=== PATIENT | female | born 1975 | race Two or more races ===

== ENCOUNTER 2025-05-05 21:35 | Emergency (ER) | payer MEDICAID, SELFPAY ==
[2025-05-05 21:36] VITALS: BMI 25.0
[2025-05-05 21:46] VITALS: BP 109/71; PULSE 89; RESP 18; TEMP 36.7; O2SAT 97
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
--- NOTE | 2025-05-05 22:24 | XR_ITS ---
Examination: CT brain head without contrast. 2-D sagittal coronal reconstructions Date and time of exam:May 05, 2025 1034 hours Comparison June 11, 2021 INDICATIONS: Headaches altered mental status onset today CTDI: vol (mGy):45.6 DLP: (mGycm):898 Technique: Multiple CT axial sections of the brain have been obtained, 5 mm slice thickness. Contrast has not been administered. 2-D sagittal, coronal reconstructions have been obtained Low dose protocols were performed. One or more of the following dose reduction techniques were used; automated exposure control, adjustment of the mA and/or KV according to patient size, use of iterative reconstruction technique. Findings: No significant ventricular enlargement. Intra-axial or extra-axial hemorrhage density is not seen. No mass effect or midline shift Basal cisterns are not remarkable. Fourth ventricle is midline. Cranial vault intact. Impression: Negative for acute hemorrhage, mass effect or midline shift
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
--- NOTE | 2025-05-05 22:24 | XR_ITS ---
Examination: PA lateral chest 2 views TECHNIQUE: Upright PA and lateral chest 2 views Date and time: May 05, 2025 2350 hours Comparison December 27, 2021 INDICATIONS: Chest pain and coughing today. FINDINGS: Normal heart size The lungs are clear. Thoracolumbar dextroscoliosis 12 degrees IMPRESSION: No active disease
[2025-05-05] MEDS: IBUPROFEN TAB 600 MG TABLET PO (22:40)
[2025-05-05 23:31] LABS: HCG Qualitative,Urine Negative
== END 2025-05-06 01:14 | disposition home or self-care (01) ==
PROVIDERS: Physician Assistant; Emergency Provider Emergency Medicine
DX: S16.1XXA Strain of muscle, fascia and tendon at neck level, initial encounter (principal); M25.512 Pain in left shoulder; V89.2XXA Person injured in unspecified motor-vehicle accident, traffic, initial encounter; R51.9 Headache, unspecified; R41.82 Altered mental status, unspecified; R07.9 Chest pain, unspecified; R05.9 Cough, unspecified
CPT/HCPCS: 70450; 71046; 72125; 81025; 99283; A9270

== ENCOUNTER 2025-05-10 19:29 | Emergency (ER) | payer MEDICAID, SELFPAY ==
[2025-05-10 19:29] VITALS: BMI 25.0
[2025-05-10 19:47] VITALS: BP 128/87; PULSE 87; RESP 16; TEMP 36.9; O2SAT 99
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
[2025-05-10 21:16] LABS: Basophils # (Auto) 0.0 Thou/mm3 (0.0-0.2); Basophils % (Auto) 0 % (0-2.5); Eosinophils # (Auto) 0.1 Thou/mm3 (0.0-0.5); Eosinophils % (Auto) 2 % (0-10); Hematocrit 40.1 % (36.0-46.0); Hemoglobin 13.5 g/dL (12.0-16.0); Immature Granulocytes Auto 0.01 Thou/mm3 (0.00-0.00); Lymphocytes # (Auto) 3.1 Thou/mm3 (1.0-4.8); Lymphocytes % (Auto) 43 % (10-50); Mean Corpuscular HGB Conc 33.7 g/dl (31.0-37.0); Mean Corpuscular Hemoglobin 31.3 pg (25.0-35.0); Mean Corpuscular Volume 93 fL (80-100); Monocytes # (Auto) 0.3 Thou/mm3 (0.0-0.8); Monocytes % (Auto) 5 % (0-12); Neutrophils # (Auto) 3.7 Thou/mm3 (1.8-7.7); Neutrophils % (Auto) 50 % (37-80); Nucleated Red Blood Cell # 0.00 Thou/mm3 (0.00-0.00); Nucleated Red Blood Cell % 0 /100 WBC (0); Platelet Count 236 Thou/mm3 (140-440); RDW Standard Deviation 46.5 fL (36.4-46.3); Red Blood Count 4.32 Miln/mm3 (4.00-5.20); White Blood Count 7.3 Thou/mm3 (3.6-11.0)
[2025-05-10 21:34] LABS: Alanine Aminotransferase 140 U/L (10-49); Albumin, Serum 4.9 gm/dL (3.5-5.0); Albumin/Globulin Ratio 1.8 (1.2-2.2); Alkaline Phosphatase 108 U/L (46-116); Anion Gap 7 (7-16); Aspartate Amino Transferase 57 U/L (0-34); BUN/Creatinine Ratio 26 Ratio (12-20); Bilirubin,Total 0.4 mg/dL (0.3-1.2); Blood Urea Nitrogen 18 mg/dL (9-23); Calcium 10.1 mg/dL (8.3-10.6); Calcium (Corrected) 10.1 mg/dL (8.5-10.1); Carbon Dioxide 27.9 mMol/L (20.0-31.0); Chloride 106 mMol/L (98-107); Creatinine (Component) 0.7 mg/dL (0.6-1.3); Estimated Creatinine Clearance 75.8 mL/min (>60); Globulin 2.7 gm/dL (2.3-3.5); Glucose 192 mg/dL (74-106); Osmolality,Calculated 288 (275-295); Potassium 3.8 mMol/L (3.4-5.1); Sodium 141 mMol/L (136-145); Total Protein 7.6 gm/dL (5.7-8.2); eGFR > 60 See Note
[2025-05-10 22:39] VITALS: BP 124/85; PULSE 83; RESP 17; TEMP 36.9; O2SAT 98
[2025-05-10] MEDS: HYDROcodone/APAP 5/325 TABLET 1 TAB PO (22:44)
== END 2025-05-10 22:50 | disposition home or self-care (01) ==
PROVIDERS: Physician Assistant; Emergency Provider Emergency Medicine; PCP Family Medicine
DX: S16.1XXA Strain of muscle, fascia and tendon at neck level, initial encounter (principal); R51.9 Headache, unspecified; V89.2XXA Person injured in unspecified motor-vehicle accident, traffic, initial encounter
CPT/HCPCS: 36415; 70450; 70496; 70498; 72125; 80053; 85025; 99283; A4649; Q9967; A9270

== ENCOUNTER 2025-07-23 06:12 | Emergency (ER) | payer MEDICAID, SELFPAY ==
[2025-07-23 06:12] VITALS: BMI 25.0
[2025-07-23 06:20] VITALS: BP 122/82; PULSE 78; RESP 18; TEMP 36.4; O2SAT 97
--- NOTE | 2025-07-23 06:29 | EKG_ITS ---
[facility] Test Date: 2025-07-23 Pat Name: DELVIS GOODEN Department: Room: - Gender: Female Drug Safety Assistant: : 1975 Requested By: William Frye Order Number: [id number] Reading MD: William Frye Measurements Intervals [place] Rate: 78 P: 24 IA: 145 QRS: -9 QRSD: 74 T: 36 QT: 413 QTc: 473 Interpretive Statements SINUS RHYTHM POSSIBLE LEFT ATRIAL ENLARGEMENT [-0.1mV P-WAVE IN V1/V2] Compared to ECG 01/17/2021 10:52:38 No significant changes /store/S0/[id number]
--- NOTE | 2025-07-23 06:30 | EDNOTE_ITS ---
<Statement entered by Destiny Zamora MD - 07/24/25 16:16> As co-signing physician, I was present and available for consult prn. I concur with the plan and care as documented by the midlevel provider. ED Dizzyness RME/HPI General Chief Complaint: Dizziness Stated Complaint: DIZZINESS/VOMITING Time Seen by Provider: 07/23/25 06:14 Source: patient Arrival date/time: 07/23/25 06:12 49-year-old female with a history of hypertension, type 2 diabetes presents to the emergency room with a chief complaint of dizziness and vomiting since 4 AM this morning Mode of arrival: ambulatory Limitations: no limitations Related Data Home Medications ?Medication ?Instructions ?Recorded ?Confirmed lisinopril 10 mg tablet 06/22/20 metformin 500 mg tablet 500 mg PO BID 06/22/2006/22 Previous Rx's ?Medication ?Instructions ?Recorded naproxen 500 mg tablet 500 mg PO BID PRN pain #30 t abs 06/22/20 meclizine 25 mg tablet 25 mg PO TID PRN dizziness # 14 tabs 01/17/21 cephalexin 500 mg capsule 500 mg PO QID #40 caps 12/27 loratadine 10 mg tablet 10 mg PO QDAY #30 tabs 12/27 ibuprofen 800 mg tablet 800 mg PO TID PRN pain #30 t abs 02/21/22 hydrocodone 5 mg-acetaminophen 325 1 tab PO TID PRN pa in #20 tabs 12/15/22 mg tablet ondansetron HCl 4 mg tablet 4 mg PO TID PRN nausea and 12/15/22 vomiting #20 tabs ciprofloxacin HCl 500 mg tablet 500 mg PO BID #10 tabs 03/03/24 (Cipro) lidocaine 5 % topical patch 1 patch topical Q24H Muscl e pain 05/06/25 (Lidoderm) #15 ea meloxicam 15 mg tablet 15 mg PO QDAY #10 tabs 05/06 methocarbamol 500 mg tablet 500 mg PO Q8H PRN Muscle s pasms 05/06/25 #15 tabs meclizine 25 mg tablet 25 mg PO BID PRN dizziness # 14 tabs 07/23/25 ondansetron 4 mg disintegrating 4 mg PO Q8H PRN nausea and 07/23/25 tablet vomiting #14 tabs Allergies Allergy/AdvReac Type Severity Reaction Status Date / Time No Known Allergies Allergy Verified 03/03/24 17:12 Review of Systems Review of Systems Systems Reviewed: All systems reviewed, normal except as documented Constitutional Constitutional: Reports system reviewed and no additional complaints, except as documented, Denies fatigue, Denies fever(s), Denies headache(s) and Reports weakness Eyes Eyes: Reports system reviewed and no additional complaints, except as documented, Denies blurry vision and Denies change in vision ENT Ears, Nose, Mouth, and Throat: Reports system reviewed and no additional complaints, except as documented, Denies otalgia, Denies headache(s), Denies nasal congestion, Denies throat swelling and Reports vertigo Cardiovascular Cardiovascular: Reports system reviewed and no additional complaints, except as documented, Denies chest pain, Denies dyspnea and Denies dyspnea on exertion Respiratory Respiratory: Reports system reviewed and no additional complaints, except as documented, Denies chest congestion, Denies cough, Denies dyspnea, Denies dyspnea on exertion and Denies wheezing Gastrointestinal Gastrointestinal: Reports system reviewed and no additional complaints, except as documented, Denies abdominal pain, Denies cramping, Denies nausea and Denies vomiting Genitourinary Genitourinary: Reports system reviewed and no additional complaints, except as documented Musculoskeletal Musculoskeletal: Reports system reviewed and no additional complaints, except as documented and Denies back pain Integumentary/Breasts Skin/Breast: Reports system reviewed and no additional complaints, except as documented and Denies wounds Neurologic Neurologic: Reports system reviewed and no additional complaints, except as documented, Denies confusion, Denies headache(s), Denies lack of coordination, Reports vertigo and Reports weakness Psychiatric Psychiatric: Reports system reviewed and no additional complaints, except as documented, Denies anxiety, Denies confusion, Denies depression, Denies paranoia, Denies suicidal ideation and Denies tactile hallucinations Endocrine Endocrine: Reports system reviewed and no additional complaints, except as documented and Denies fatigue Hematologic/Lymphatic Hematologic/Lymphatic: Reports system reviewed and no additional complaints, except as documented and Denies lymphadenopathy Allergic/Immunologic Allergic/Immunologic: Reports system reviewed and no additional complaints, except as documented, Denies throat swelling, Denies urticaria and Denies wheezing Past Medical History Past Medical History NEUROLOGIC: Negative Cerebrovascular Accident or Alzheimer's Disease CARDIAC: Positive Hypertension; Negative Cardiac Disorders, Myocardial Infarction, Angina or Congestive Heart Failure RESPIRATORY: Negative Chronic Obstructive Pulmonary Disease (COPD), Asthma, Emphysema or Cystic Fibrosis GASTROINTESTINAL: Negative Liver Cancer or Pancreatic Cancer GENITOURINARY: Negative Genitourinary Disorders or Renal Disease MUSCULOSKELETAL: Negative Bone Cancer or Osteoporosis ENDOCRINE: Positive Diabetes Mellitus Type 2; Negative Endocrine Disorders or Diabetes Mellitus Type 1 HEMATOLOGIC: Negative Sickle Cell Disease PSYCHO/SOCIAL: Positive Depression OTHER HISTORY: Negative Down Syndrome or Developmental Delay Social History SMOKING STATUS: Never smoker ED Exam General Limitations: Present no limitations General appearance: Present alert and in no apparent distress Head Head exam: Present atraumatic; Absent normocephalic or normal inspection Eye Eye exam: Present normal appearance, PERRL and EOMI ENT ENT exam: Present normal exam, normal oropharynx and mucous membranes moist Neck Neck exam: Present normal inspection, full ROM and trachea midline Chest Chest inspection: Present normal inspection and symmetric chest wall rise Respiratory Respiratory exam: Present normal lung sounds bilaterally Cardiovascular Cardiovascular exam: Present regular rate, normal rhythm and normal heart sounds Abdominal Exam Abdominal exam: Present soft and normal bowel sounds Extremities Exam Extremities exam: Present normal inspection and full ROM Back Exam Back exam: Present normal inspection and full ROM Neurological Exam Neurological exam: Present alert, oriented X3, CN II-XII intact, normal gait and reflexes normal Expanded Neurological Exam Patient oriented to: Present person, place and time Speech: Present fluid speech Cranial nerves: Normal: EOM function (II, III, IV, ) and facial sensation (V) Cerebellar function: Present normal gait Motor strength - LUE: 5/5 Motor strength - RUE: 5/5 Motor strength - LLE: 5/5 Motor strength - RLE: 5/5 Coma scale eye opening: spontaneous Coma scale motor response: obeys commands Coma scale verbal response: oriented Coma scale total: 15 Psychiatric Psychiatric exam: Present normal affect and normal mood Skin Skin exam: Present warm, dry, intact and normal color Course Quality Measures none Orders Category Date Time Status EKG (ED ONLY) *Do not use* NOW Care 07/23/25 06:29 Completed EKG (ED Only) Stat Exams 07/23/25 06:29 Draft BNP [B-Type Natriuretic Peptide] Stat Lab 07/23/25 07:33 Completed CBC Stat Lab 07/23/25 07:33 Completed Comprehensive Metabolic Panel Stat Lab 07/23/25 07:33 Completed Troponin I Stat Lab 07/23/25 07:33 Completed Urinalysis Stat Lab 07/23/25 06:42 Completed Urine Culture Stat Lab 07/23/25 06:42 Received Meclizine HCl [Antivert] Med 07/23/25 06:29 Discontinued 50 mg PO X1 ONE Ondansetron Odt [Zofran Odt] Med 07/23/25 06:29 Discontinued 4 mg PO X1 ONE Vital Signs Vital signs: Vital Signs Temperature 97.5 F 07/23/25 06:20 Pulse Rate 78 07/23/25 06:20 Respiratory Rate 18 07/23/25 06:20 Blood Pressure 122/82 07/23/25 06:20 Pulse Oximetry (%) 97 07/23/25 06:20 Oxygen Delivery Method Room Air 07/23/25 06:20 PROCEDURES: EKG Interpretation #1: Date of EK07/23/25 Time of EK:36 Rate: 78 Interpretation: Reviewed by me EKG Impression: Normal sinus rhythm Dizziness MDM Narrative MDM Narrative:: 49-year-old female with a history of hypertension, type 2 diabetes presents to the emergency room with a chief complaint of dizziness and vomiting since 4 AM this morning Patient is hemodynamically stable and in no apparent distress Physical examination shows a normal neurological exam. The patient has a normal steady gait patient is GCS 15 alert and oriented x 3 pupils are PERRLA EOMs are intact. The patient had a positive [place]-Hallpike maneuver. There is nystagmus. CBC CMP were within normal limits. EKG shows normal sinus rhythm at [address] deviation Patient was given meclizine and Zofran with significant improvement to her symptoms. The patient's findings are consistent with benign paroxysmal po sitional vertigo Patient was discharged and educated to follow-up with primary care provider in the next 24 to 48 hours and return to the emergency room for any evidence of worsening signs or symptoms Patient data External records reviewed:: [facility] previous records Clinical information provided by:: patient Social determinants that could affect healthcare access:: none Patient has the following chronic illnesses:: Hypertension, type 2 diabetes How is presenting disease/condition affected by chronic disease/condition?: uneffected by Evaluation data The following diagnostics were reviewed and interpreted by me:: lab results and radiology exam(s) Lab and/or radiology exams considered but not ordered:: Labs and radiology exams considered and ordered Interpretation Summary: N/A Medications / Prescriptions Medications or Prescriptions considered but not ordered:: Medication given Medication administrations:: Medication Administration History Discontinued Medications Meclizine HCl (Meclizine Hcl 25 Mg Tablet) 50 mg PO X1 ONE Stop: 07/23/25 06:30 Last Admin: 07/23/25 06:44 Dose: 50 mg Documented By: DEION Ondansetron HCl (Ondansetron Odt 4 Mg Tabrap) 4 mg PO X1 ONE; Protocol Stop: 07/23/25 06:30 Last Admin: 07/23/25 06:45 Dose: 4 mg Documented By: DEION Medication given Consultations Consultation(s) initiated? (list below): No Diagnosis Dizziness Differential Diagnosis: benign paroxysmal positional vertigo, orthostatic hypotension, cerebrovascular accident and other (Dizziness) Most likely diagnosis given after review of the tests above:: Benign paroxysmal positional vertigo Admission Indicated Admission indicated?: not indicated Admission Request Was there a request for admission?: No Disposition Plan Disposition Plan: Discharge Discharge Attestation Discharge Attestation: The patient and all family members were given an opportunity to ask questions and understood the discharge instructions. Discharge instructions specifically effects, indications for sooner follow up or return to the emergency department, and the expected course of current diagnosis. Patient condition: Stable Discharge Plan Plan Patient Disposition: HOME (Self Care) Discharge Disposition comment: Stable Prescriptions/Referrals Prescriptions/Med Rec: New meclizine 25 mg tablet 25 mg PO BID PRN (Reason: dizziness) Qty: 14 0RF ondansetron 4 mg tablet,disintegrating 4 mg PO Q8H PRN (Reason: nausea and vomiting) Qty: 14 0RF No Action cephalexin 500 mg capsule 500 mg PO QID Qty: 40 0RF loratadine 10 mg tablet 10 mg PO QDAY Qty: 30 0RF ibuprofen 800 mg tablet 800 mg PO TID PRN (Reason: pain) Qty: 30 0RF metformin 500 mg Tablet 500 mg PO BID lisinopril 10 mg Tablet naproxen 500 mg tablet 500 mg PO BID PRN (Reason: pain) Qty: 30 0RF meclizine 25 mg tablet 25 mg PO TID PRN (Reason: dizziness) Qty: 14 0RF ciprofloxacin HCl [Cipro] 500 mg tablet 500 mg PO BID Qty: 10 0RF meloxicam 15 mg tablet 15 mg PO QDAY Qty: 10 0RF methocarbamol 500 mg tablet 500 mg PO Q8H PRN (Reason: Muscle spasms) Qty: 15 0RF lidocaine [Lidoderm] 5 % adhesive patch,medicated 1 patch topical Q24H Qty: 15 0RF Rx Instructions: leave on most painful area for up to 12 hrs hydrocodone-acetaminophen 5-325 mg tablet 1 tab PO TID MDD 3 PRN (Reason: pain) Qty: 20 0RF ondansetron HCl 4 mg tablet 4 mg PO TID PRN (Reason: nausea and vomiting) Qty: 20 0RF Referrals: Temporary Provider,ED [Physician, Emergency Medicine] - In 1 week Problem List Clinical Impression: Benign paroxysmal positional vertigo Patient/Caregiver Discharge Instructions Education Materials: ED BPV Vertigo Additional Instructions: Please follow-up with your primary care provider in the next 24 to 48 hours Medication was sent to your pharmacy please pick it up and take it as indicated Your cardiac examination was within normal limits For any evidence of worsening signs or symptoms return to the emergency room immediately Print Language: Latvian Stand Alone Forms: Jammie Award Info., Work/School Release, Patient Portal Info Letter PA/HEALTHCARE PROJECT MANAGER Supervising Physician PA/HEALTHCARE PROJECT MANAGER Supervising Physician: Dr. ZAMORA
[2025-07-23] MEDS: MECLIZINE HCL 25 MG TABLET 50 MG PO (06:44)
[2025-07-23] MEDS: ONDANSETRON ODT 4 MG TABRAP PO (06:45)
[2025-07-23 07:35] LABS: Collection Type, Urine Clean Catch
[2025-07-23 07:44] LABS: Basophils # (Auto) 0.0 Thou/mm3 (0.0-0.2); Basophils % (Auto) 0 % (0-2.5); Eosinophils # (Auto) 0.1 Thou/mm3 (0.0-0.5); Eosinophils % (Auto) 1 % (0-10); Hematocrit 39.1 % (36.0-46.0); Hemoglobin 13.0 g/dL (12.0-16.0); Immature Granulocytes Auto 0.05 Thou/mm3 (0.00-0.00); Lymphocytes # (Auto) 1.8 Thou/mm3 (1.0-4.8); Lymphocytes % (Auto) 14 % (10-50); Mean Corpuscular HGB Conc 33.2 g/dl (31.0-37.0); Mean Corpuscular Hemoglobin 31.1 pg (25.0-35.0); Mean Corpuscular Volume 94 fL (80-100); Monocytes # (Auto) 0.4 Thou/mm3 (0.0-0.8); Monocytes % (Auto) 3 % (0-12); Neutrophils # (Auto) 10.5 Thou/mm3 (1.8-7.7); Neutrophils % (Auto) 82 % (37-80); Nucleated Red Blood Cell # 0.00 Thou/mm3 (0.00-0.00); Nucleated Red Blood Cell % 0 /100 WBC (0); Platelet Count 213 Thou/mm3 (140-440); RDW Standard Deviation 44.1 fL (36.4-46.3); Red Blood Count 4.18 Miln/mm3 (4.00-5.20); White Blood Count 12.8 Thou/mm3 (3.6-11.0)
[2025-07-23 07:56] LABS: Bilirubin,Urine Negative (Negative); Blood,Urine Trace (Negative); Clarity,Urine Clear (Clear/Hazy); Color,Urine Lt-Yellow (Lt Yel-Yel); Glucose, Urine 4+ (Negative); Ketones,Urine Negative (Negative); Leukocyte Esterase,Urine Negative (Negative); Nitrite,Urine Negative (Negative); PH,Urine 6.0 (5.0-7.0); Protein,Urine Negative (Neg - Trace); RBC,Urine 9 /hpf (0-3); Specific Gravity,Urine 1.047 (1.001-1.035); Squamous Epithelial Cell,Urine 9 /hpf (0-5); Urobilinogen,Urine Negative mg/dL (0.0-1.0); WBC,Urine 1 /hpf (0-5)
[2025-07-23 08:06] LABS: Alanine Aminotransferase 56 U/L (10-49); Albumin, Serum 4.9 gm/dL (3.5-5.0); Albumin/Globulin Ratio 1.9 (1.2-2.2); Alkaline Phosphatase 80 U/L (46-116); Anion Gap 10 (7-16); Aspartate Amino Transferase 37 U/L (0-34); BUN/Creatinine Ratio 30 Ratio (12-20); Bilirubin,Total 0.4 mg/dL (0.3-1.2); Blood Urea Nitrogen 18 mg/dL (9-23); Calcium 9.3 mg/dL (8.3-10.6); Calcium (Corrected) 9.3 mg/dL (8.5-10.1); Carbon Dioxide 25.6 mMol/L (20.0-31.0); Chloride 105 mMol/L (98-107); Creatinine (Component) 0.6 mg/dL (0.6-1.3); Estimated Creatinine Clearance 88.5 mL/min (>60); Globulin 2.6 gm/dL (2.3-3.5); Glucose 175 mg/dL (74-106); Osmolality,Calculated 287 (275-295); Potassium 4.0 mMol/L (3.4-5.1); Sodium 141 mMol/L (136-145); Total Protein 7.5 gm/dL (5.7-8.2); Troponin I < 0.020 ng/mL (0.0-0.045); eGFR > 60 See Note
[2025-07-23 08:17] LABS: B-Type Natriuretic Peptide < 20 pg/mL (0-100)
== END 2025-07-23 09:01 | disposition home or self-care (01) ==
PROVIDERS: Emergency Provider Nurse Practitioner Family; PCP Physician Assistant
DX: H81.10 Benign paroxysmal vertigo, unspecified ear (principal); R94.31 Abnormal electrocardiogram [ECG] [EKG]
CPT/HCPCS: 36415; 80053; 81001; 83880; 84484; 85025; 87086; 93005; 99283; Q0162; A9270